=== PATIENT | female | born 1955 | race Asian ===

== ENCOUNTER 2017-11-04 08:03 | Outpatient (CLI) | payer BC | END 2017-11-04 23:20 | disposition home or self-care (01) | LOC: RAD 08:03 → EDBD 08:03 → RAD 23:20 | DX: R06.02 Shortness of breath (principal) ==

== ENCOUNTER 2018-01-10 08:59 | Outpatient (CLI) | payer BC | END 2018-01-10 19:14 | disposition home or self-care (01) | LOC: CT 08:59 → EDBD 09:00 → CT 09:00 | DX: J84.10 Pulmonary fibrosis, unspecified (principal); J43.2 Centrilobular emphysema ==

== ENCOUNTER 2018-08-21 10:01 | Outpatient (CLI) | payer OTHER | END 2018-08-21 19:52 | disposition home or self-care (01) | LOC: RESP 10:01 | DX: J43.2 Centrilobular emphysema (principal) | CPT/HCPCS: 94664 ==

== ENCOUNTER 2020-04-20 11:36 | Outpatient (CLI) | payer OTHER | END 2020-04-20 19:38 | disposition home or self-care (01) | LOC: RAD 11:36 | PROVIDERS: ATTEND Internal Medicine Sleep Medicine | DX: J45.909 Unspecified asthma, uncomplicated (principal) ==

== ENCOUNTER 2020-05-25 15:46 | Outpatient (CLI) | payer OTHER | END 2020-05-25 23:09 | disposition home or self-care (01) | LOC: INF 15:46 | PROVIDERS: ATTEND Internal Medicine | DX: Z23 Encounter for immunization (principal) | CPT/HCPCS: 96372 ==

== ENCOUNTER 2020-06-16 13:09 | Outpatient (CLI) | payer OTHER | END 2020-06-16 19:47 | disposition home or self-care (01) | LOC: INF | PROVIDERS: ATTEND Internal Medicine | DX: Z23 Encounter for immunization (principal) | CPT/HCPCS: 96372 ==

== ENCOUNTER 2020-11-30 10:46 | Outpatient (CLI) | payer OTHER | END 2020-11-30 19:28 | disposition home or self-care (01) | LOC: LABW 10:46 | PROVIDERS: ATTEND Podiatrist | DX: B35.1 Tinea unguium (principal) | CPT/HCPCS: 36415; 84450; 84460 ==

== ENCOUNTER 2021-01-16 13:54 | Outpatient (CLI) | payer OTHER | END 2021-01-16 19:44 | disposition home or self-care (01) | LOC: LABW 13:54 | PROVIDERS: ATTEND Podiatrist | DX: B35.1 Tinea unguium (principal) | CPT/HCPCS: 36415; 84450; 84460 ==

== ENCOUNTER 2021-12-18 12:28 | Outpatient (CLI) | payer OTHER | END 2021-12-18 18:59 | disposition home or self-care (01) | LOC: MRI 12:28 | PROVIDERS: ATTEND Internal Medicine | DX: M54.2 Cervicalgia (principal); M54.12 Radiculopathy, cervical region ==

== ENCOUNTER 2022-01-01 13:30 | Outpatient (CLI) | payer OTHER | END 2022-01-01 19:43 | disposition home or self-care (01) | LOC: MRI 13:30 | PROVIDERS: ATTEND Internal Medicine | DX: D32.1 Benign neoplasm of spinal meninges (principal) | CPT/HCPCS: 36415; 82565; 84520 ==